=== PATIENT | male | born 1995 | race Caucasian/White ===

== ENCOUNTER 2021-08-29 07:36 | Observation (INO) | payer BC ==
[2021-08-29] MEDS ORDERED: Ondansetron PF 4 MG/2 ML Vial ONE (08:16)
[2021-08-29] MEDS ORDERED: Ketorolac Tromethamine 30 MG/ML VIAL ONE (08:16)
[2021-08-29 08:29] LABS: #Eosinphils 0.2 10x3/uL (0.0-0.5); #Monocytes 0.6 10x3/uL (0.0-1.1); #Neutrophils 8.7 10x3/uL (1.5-8.4); %Basophils 0.4 % (0.0-2.0); %Eosinophils 1.3 % (0.0-6.0); %Lymphocytes 15.6 % (18.0-47.0); %Monocytes 5.2 % (0.0-10.0); %Neutrophils 77.2 % (40.0-75.0); Hemoglobin 15.5 g/dL (13.5-17.5); Mean Corpuscular HGB CONC 34.7 g/dL (32.0-36.0); Mean Corpuscular Hemoglobin 29.8 pg (27.0-33.0); Mean Platelet Volume 10.5 fl (7.4-10.4); Platelet Count 224 10x3/uL (150-450); RBC Distribution Width 12.5 % (11.5-14.5); White Blood Cell (WBC) Count 11.3 10x3/uL (3.5-10.5)
[2021-08-29 08:41] LABS: ALT (SGPT) 100 U/L (8-55); AST (SGOT) 44 U/L (5-34); Albumin 4.7 g/dL (3.5-5.0); Alkaline Phosphatase 104 U/L (40-110); Anion Gap 14 mmol/L (10-20); BUN (Urea Nitrogen) 13 mg/dL (8.9-20.6); Bilirubin, Total 0.5 mg/dL (0.2-1.2); Calc. Creatinine Clearance 0 mL/min (70-130); Calcium 9.9 mg/dL (7.8-10.44); Carbon Dioxide 29 mmol/L (22-29); Chloride 102 mmol/L (98-107); Glucose 109 mg/dL (70-105); Potassium 4.4 mmol/L (3.5-5.1); Protein, Total 7.7 g/dL (6.0-8.3); Sodium 141 mmol/L (136-145)
[2021-08-29] MEDS ORDERED: Piperacillin/Tazobactam 4.5 GM VIAL ONE (09:45)
[2021-08-29 09:58] LABS: SARS-CoV-2 NAA Rapid Test Not Detected (NotDetected)
[2021-08-29] MEDS ORDERED: Ondansetron PF 4 MG/2 ML Vial IVP PRN (12:56)
[2021-08-29] MEDS ORDERED: Morphine 2 MG/ML VIAL SLOW IVP PRN (12:56)
[2021-08-29] MEDS ORDERED: Promethazine HCl 25 MG/ML VIAL IM PRN (12:56)
[2021-08-29] MEDS ORDERED: Dextrose 50% Abboject 50 ML SYRINGE SLOW IVP PRN (12:56)
[2021-08-29] MEDS ORDERED: hydrALAZINE 20 MG/ML VIAL SLOW IVP PRN (12:56)
[2021-08-29] MEDS ORDERED: Dextrose 5% in Water 1,000 ML IV PRN (12:56)
[2021-08-29] MEDS ORDERED: Iopamidol 300 61% 100 ML VIAL FS ONE (13:22)
[2021-08-29] MEDS ORDERED: D5 1/2 NS w/20 mEq KCL 1,000 ML ONE (15:42)
[2021-08-29 17:59] VITALS: BMI 27.1
[2021-08-29] MEDS ORDERED: Piperacillin/Tazobactam 3.375 GM in Sodium Chloride 0.9% 100 ML IVPB SCH (18:00)
[2021-08-29] MEDS: D5 1/2 NS w/20 mEq KCL 1,000 ML IV SCH (19:17)
[2021-08-29] MEDS: Famotidine/PF 20 mg/2ml Vial SLOW IVP SCH (21:36)
[2021-08-29] MEDS ORDERED: Bupivacaine 0.25% HCL 30 ML VIAL ONE (22:37)
[2021-08-30] MEDS ORDERED: Fentanyl 100 MCG/2 ML VIAL ONE ×2 (00:31→01:34)
[2021-08-30] MEDS ORDERED: PROPOFOL 20 ML ONE (00:31)
[2021-08-30] MEDS ORDERED: HYDROmorphone 0.5 MG/0.5 ML SYRINGE ONE (00:37)
[2021-08-30] MEDS ORDERED: Midazolam HCl 2 mg/2 ml Vial ONE (00:38)
[2021-08-30] MEDS ORDERED: Dexamethasone 20 MG/5 ML VIAL ONE (00:55)
[2021-08-30] MEDS ORDERED: ePHEDrine Sulfate 50 MG/10 ML VIAL ONE (00:56)
[2021-08-30] MEDS ORDERED: Glycopyrrolate 0.2 MG/ML 5 ML SYRINGE ONE (01:16)
[2021-08-30] MEDS ORDERED: Meperidine HCl/PF 25 MG/ML VIAL ONE (01:33)
[2021-08-30] MEDS ORDERED: HYDROcodone/Acetaminophen 5/325 mg Tablet PO PRN (01:38)
[2021-08-30] MEDS: D5 1/2 NS w/20 mEq KCL 1,000 ML IV SCH (03:30)
[2021-08-30] MEDS: Famotidine/PF 20 mg/2ml Vial SLOW IVP SCH (08:47)
[2021-08-30 12:49] VITALS: BP 113/70; TEMP 97.9
== END 2021-08-30 13:10 | disposition home or self-care (01) ==
LOC: CSHERS 07:36 → INTOOBSV 17:08 → CSHPP 17:08
PROVIDERS: ADMIT Surgery; ATTEND Surgery
PROC: 0DTJ4ZZ Resection of Appendix, Percutaneous Endoscopic Approach (ICD-10-PCS; principal; 2021-08-30)
DX: K35.80 Unspecified acute appendicitis (principal); Z79.899 Other long term (current) drug therapy; Z20.822 Contact with and (suspected) exposure to COVID-19
CPT/HCPCS: 74177; 80053; 85025; 88304; 93005; 96366; 96374; 96375; G0378; J1100; J1170; J1885; J2175; J2250; J2270; J2405; J2543; J2704; J3010; J3480; J3490; Q9967; S0020; S0028; U0002